=== PATIENT | female | born 1985 | race Two or more races ===

== ENCOUNTER 2023-10-05 12:37 | Emergency (ER) | payer MEDICAID ==
[~2023-10-05] VITALS: Ht 152.4 cm; Wt 67.9 kg
[2023-10-05 13:25] LABS: Urine Bacteria FEW /hpf (None Seen); Urine Blood 3+ /uL (Negative); Urine Clarity Clear (Clear); Urine Color Light-Yellow (Yellow); Urine Protein, UAD Negative (Negative); Urine Specific Gravity 1.019 (1.001-1.035); Urine Urobilinogen Normal (Negative); Urine WBC 6 /hpf (0 - 5); Urine pH 7.5 (5.0-9.0)
[2023-10-05] MEDS: DONNATAL 5ml ORAL Elix (BELLADONNA ALK-PHENOBARB) PO ONE (13:35)
[2023-10-05] MEDS: ONDANSETRON ODT 4 MG TAB PO ONE (13:35)
[2023-10-05] MEDS: MAALOX PLUS or MAALOX 30 ML PO ONE (13:35)
[2023-10-05] MEDS: LIDOCAINE VISCOUS 2% 15ML UD PO ONE (13:35)
[2023-10-05 13:39] LABS: Basophils # (auto) 0.1 10 ^3/uL (0-0.2); Basophils % (auto) 0.7 % (0.0-2.0); Eosinophils # (auto) 0.1 10 ^3/uL (0-0.8); Eosinophils % (auto) 1.4 % (0.0-7.0); Hematocrit 39.6 % (36.0-46.0); Lymphocytes # (auto) 1.5 10 ^3/uL (0.4-5.4); Lymphocytes % (auto) 15.3 % (10.0-50.0); Mean Corpuscular Hemoglobin 28.1 pg (28.0-32.0); Mean Corpuscular Hgb Conc. 32.9 g/dL (32.0-36.0); Mean Corpuscular Volume 85.3 fL (80.0-100.0); Monocytes # (auto) 0.6 10 ^3/uL (0-1.3); Monocytes % (auto) 6.1 % (0.0-12.0); Neutrophils # (auto) 7.5 10 ^3/uL (1.6-8.6); Neutrophils % (auto) 76.5 % (37.0-80.0); Red Blood Cells 4.64 10^6/uL (4.0-5.20); Red Cell Distribution Width 14.2 % (11.8-14.3); White Blood Cell 9.8 10^3/uL (4.4-10.8)
[2023-10-05 13:54] LABS: INR 0.95 (0.9-1.15); Partial Thromboplastin Time 26.5 SEC (24.5-34.5); Prothrombin Time 10.1 sec (9.3-11.8)
[2023-10-05 13:56] LABS: Alanine Aminotransferase 23 U/L (7-40); Alkaline Phosphatase 69 U/L (46-116); Anion Gap 7 (5-15); Aspartate Aminotransferase 11 U/L (13-40); BUN/Creatinine Ratio 15.1 (10.0-20.0); Bilirubin, Total 0.2 mg/dL (0.2-1.0); Blood Urea Nitrogen 11 mg/dL (9-23); Calcium 9.4 mg/dL (8.7-10.4); Carbon Dioxide 22 mmol/L (20-30); Chloride 110 mmol/L (98-107); Glucose 104 mg/dL (74-106); Lipase 45 U/L (12-53); Potassium 3.9 mmol/L (3.5-5.1); Sodium 139 mmol/L (136-145); Total Protein 7.4 g/dL (5.7-8.2)
[2023-10-05] MEDS ORDERED: NITR-87 PO (15:56)
[2023-10-05 17:21] VITALS: BP 126/77; PULSE 18; RESP 59; TEMP 98.9; O2SAT 99
== END 2023-10-05 17:22 | disposition home or self-care (01) ==
LOC: ER 12:37
DX: K76.0 Fatty (change of) liver, not elsewhere classified (principal); R10.2 Pelvic and perineal pain; N39.0 Urinary tract infection, site not specified
CPT/HCPCS: 36415; 74176; 76856; 80053; 81001; 82962; 83605; 83690; 84702; 85025; 85610; 85730; 99284; Q0162